=== PATIENT | male | born 1975 | race Caucasian/White ===

== ENCOUNTER 2016-08-23 04:40 | Emergency (ER) | payer OTHER ==
[2016-08-23] MEDS ORDERED: AMOX/CLAV 875 MG/125 MG TABLET PO STA (04:43)
[2016-08-23] MEDS ORDERED: IBUPROFEN 600 MG TABLET PO STA (04:43)
--- NOTE | 2016-08-23 04:48 | ED Physician Documentation ---
PD HPI ANIMAL BITE - Stated complaint Stated Complaint: LT ARM PUNCTURE WOUNDS - History obtained from History obtained from: Patient, Family - History of Present Illness Location of injury(ies): LUE, Multiple Details of the event: Dog, Well appearing, Immunized Timing - onset: How many hours ago (3) Timing - details: Abrupt onset Improved by: Rest, Immobilization Contributing factors: No: Immunocompromised, Asplenic Similar symptoms before: Has not had sx before Recently seen: Not recently seen - Additional information Additional information: Patient is a 41 year old male with no significant past medical history who is presenting to the emergency department after being bit by his dog. Their older dog attacked the puppy, and in trying to break up the fight the patient was bit/ scratched multiple times. the older dog is up to date with his shots, but the puppy has not been vaccinated. Review of Systems Constitutional: denies: Fever, Chills Eyes: denies: Photophobia Ears: denies: Ear pain, Drainage/discharge Nose: denies: Rhinorrhea / runny nose, Epistaxis Throat: denies: Dental pain / toothache, Oral lesions / sores GI: denies: Nausea, Vomiting Skin: reports: Lesions, Abrasion (s), Laceration (s) Musculoskeletal: reports: Extremity pain Neurologic: denies: Generalized weakness, Focal weakness Immunocompromised: denies: Immunocompromised PD PAST MEDICAL HISTORY - Present Medications Home Medications: Ambulatory Orders Medication Instructions Recorded Confirmed Amox/Clav 875/125 [Augmentin] 1 each PO Q12H #14 tablet 08/23/16 Fluoxetine HCl [Prozac] 40 mg PO DAILY 08/23/16 08/23/16 - Allergies Allergies/Adverse Reactions: Allergies Allergy/AdvReac Type Severity Reaction Status Date / Time No Known Drug Allergies Allergy Verified 08/23/16 04:50 PD ED PE NORMAL - Vitals Vital signs reviewed: Yes - General General: Alert and oriented X 3, No acute distress - HEENT HEENT: Atraumatic, PERRL, Pharynx benign - Neck Neck: Supple, no meningeal sign, No JVD - Cardiac Cardiac: RRR, No murmur - Respiratory Respiratory: No respiratory distress, Clear bilaterally - Abdomen Abdomen: Soft - Neuro Neuro: Alert and oriented X 3, supervisor bridges and buildings 2-12 intact, No motor deficit, No sensory deficit, Normal speech - Psych Psych: Normal mood, Normal affect PD ED PE EXPANDED - Derm Derm: Rash, Abrasion (s), Laceration(s) (multiple scratch mercado, few puncture wounds, no active bleeding) Results - Vitals Vitals: Vital Signs - 24 hr 08/23/16 04:45 Temperature 37.1 C Heart Rate 80 Respiratory 16 Rate Blood Pressure 116/84 H O2 Saturation 100 PD MEDICAL DECISION MAKING - ED course Complexity details: reviewed old records, re-evaluated patient, considered differential, d/w patient, d/w family ED course: Patient was seen and examined at bedside. patient;s wounds were cleaned and patient was treated with augmentin and ibuprofen. both dogs were known and could be observed. patient required no further work up at this time and was stable for discharge with outpatient follow up. Departure - Departure Disposition: 01 Home, Self Care Clinical Impression: Dog bite of arm Condition: Good Instructions: ED Bite Dog Follow-Up: ROSIO VARGAS [Primary Care Provider] - Within 1 week (wound check) Prescriptions: Amox/Clav 875/125 [Augmentin] 1 each PO Q12H #14 tablet Comments: Your symptoms today are being caused by a dog bite. You had your first dose of antibiotics today and will need to take them for the next 7 days. You should make sure you keep the wounds clean and dry. You should monitor for signs of infection and follow up with your pmd for those signs. You can take motrin or tylenol as needed for pain. You can also apply ice to the wounds as needed. You may return to the emergency department at any time for new, worsening or ucnontrollable symptoms.
[2016-08-23 04:50] VITALS: BP 116/84
[2016-08-23] MEDS ORDERED: AMOX/CLAV 875 MG/125 MG TABLET PO ONE (04:54)
[2016-08-23] MEDS ORDERED: IBUPROFEN 600 MG TABLET PO ONE (04:55)
== END 2016-08-23 05:14 | disposition home or self-care (01) ==
LOC: ED 04:40
DX: S41.132A Puncture wound without foreign body of left upper arm, initial encounter (principal); W54.0XXA Bitten by dog, initial encounter
CPT/HCPCS: 99283; A9270

== ENCOUNTER 2019-07-12 11:46 | Inpatient (IN) | payer OTHER ==
[2019-07-12 12:27] LABS: BASOPHILS # (AUTO) 0.1 10^3/uL (0.0-0.1); BASOPHILS % (AUTO) 0.7 %; EOSINOPHILS # (AUTO) 0.3 10^3/uL (0.0-0.7); EOSINOPHILS % (AUTO) 2.9 %; HGB - HEMOGLOBIN 14.8 g/dL (14.0-18.0); LYMPHOCYTES # (AUTO) 1.6 10^3/uL (1.5-3.5); LYMPHOCYTES % (AUTO) 18.1 %; MEAN CORPUSCULAR HEMOGLOBIN 30.9 pg (27.0-31.0); MEAN CORPUSCULAR HGB CONC 33.3 g/dL (32.0-36.0); MEAN CORPUSCULAR VOLUME 92.7 fL (80.0-94.0); MEAN PLATELET VOLUME 11.4 fL (7.4-11.4); MONOCYTES # (AUTO) 0.8 10^3/uL (0.0-1.0); MONOCYTES % (AUTO) 8.4 %; NEUTROPHILS # (AUTO) 6.2 10^3/uL (1.5-6.6); NEUTROPHILS % (AUTO) 69.5 %; PLT - PLATELET COUNT 172 10^3/uL (130-450); RED BLOOD COUNT 4.79 10^6/uL (4.70-6.10); RED CELL DISTRIBUTION WIDTH 12.2 % (12.0-15.0); WHITE BLOOD COUNT 8.9 x10^3/uL (4.8-10.8)
[2019-07-12] MEDS ORDERED: IOVERSOL 320 100 ML VIAL IVP ONE ×2 (12:31→13:07)
[2019-07-12 12:34] LABS: INR 1.3 (0.8-1.2)
[2019-07-12 12:41] LABS: ALBUMIN 3.5 g/dL (3.2-5.5); ALBUMIN/GLOBULIN RATIO 0.8 (1.0-2.2); BILIRUBIN,TOTAL 0.6 mg/dL (0.2-1.0); CALCIUM 8.4 mg/dL (8.5-10.3); CREATININE 0.9 mg/dL (0.6-1.2); PARTIAL THROMBOPLASTIN TIME 26.4 secs (24.9-33.3); TOTAL PROTEIN 7.7 g/dL (6.7-8.2)
--- NOTE | 2019-07-12 12:54 | ED Physician Documentation ---
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 He states he was in [place] at the time. States Benadryl mildly helps his shortness of breath. No fevers. No chills. No cough. Still feels short of breath with ambulation. Has also noted swelling to the bilateral lower extremity, left greater than right. Has also stated left calf pain. Worse with exertion. no chest pain Review of Systems Ten Systems: 10 systems reviewed and negative Constitutional: denies: Fever, Chills Ears: denies: Ear pain Nose: denies: Rhinorrhea / runny nose, Congestion Throat: denies: Sore throat GI: denies: Vomiting, Diarrhea Skin: denies: Rash Musculoskeletal: denies: Neck pain, Back pain Neurologic: denies: Headache PD PAST MEDICAL HISTORY - Past Medical History Past Medical History: Yes Psych: Depression - Past Surgical History Past Surgical History: Yes - Present Medications Home Medications: Ambulatory Orders Medication Instructions Recorded Confirmed Fluoxetine HCl [Prozac] 40 mg PO DAILY 08/23/16 08/23/16 - Allergies Allergies/Adverse Reactions: Allergies Allergy/AdvReac Type Severity Reaction Status Date / Time No Known Drug Allergies Allergy Verified 08/23/16 04:50 - Social History Does the pt smoke?: Yes Smoking Status: Current every day smoker Does the pt drink ETOH?: Yes Does the pt have substance abuse?: No - Family History Family history: reports: Non contributory - Immunizations Immunizations are current?: No - POLST Patient has POLST: No PD ED PE NORMAL - Vitals Vital signs reviewed: Yes - General General: Alert and oriented X 3, No acute distress, Well developed/nourished - HEENT HEENT: Moist mucous membranes - Neck Neck: Supple, no meningeal sign - Cardiac Cardiac: RRR, Strong equal pulses - Respiratory Respiratory: No respiratory distress, Clear bilaterally - Abdomen Abdomen: Soft, Non tender, Non distended - Derm Derm: Warm and dry - Extremities Extremities: Other (Tender to palpation left posterior calf with mild swelling.) - Neuro Neuro: Alert and oriented X 3, No motor deficit, No sensory deficit - Psych Psych: Normal mood, Normal affect Results - Vitals Vitals: Vital Signs - 24 hr 07/12/19 07/12/19 07/12/19 11:49 12:24 12:30 Temperature 36.5 C Heart Rate 126 H 112 H 113 H Respiratory 20 25 H 16 Rate Blood Pressure 132/80 H 132/74 H 131/97 H O2 Saturation 96 95 93 07/12/19 13:00 Temperature Heart Rate 109 H Respiratory 16 Rate Blood Pressure 130/74 O2 Saturation 93 Oxygen O2 Source Room air - EKG (time done) 1200 Rate: Rate (enter#) (117) Rhythm: Sinus tachycardia [place]: Normal Intervals: Normal MO QRS: LVH Ischemia: Normal ST segments - Labs Labs: Laboratory Tests 07/12/19 07/12/19 07/12/19 12:17 12:17 12:17 WBC 8.9 RBC 4.79 Hgb 14.8 Hct 44.4 MCV 92.7 MCH 30.9 MCHC 33.3 RDW 12.2 Plt Count 172 MPV 11.4 Neut # (Auto) 6.2 Lymph # (Auto) 1.6 Sanders # (Auto) 0.8 Eos # (Auto) 0.3 Baso # (Auto) 0.1 Absolute Nucleated RBC 0.00 Nucleated RBC % 0.0 PT INR APTT Sodium 136 Potassium 4.1 Chloride 105 Carbon Dioxide 24 Anion Gap 7.0 BUN 8 Creatinine 0.9 Estimated GFR (MDRD) 91 Glucose 116 H Calcium 8.4 L Total Bilirubin 0.6 AST 20 ALT 21 Alkaline Phosphatase 98 Troponin I High Sens 31.7 H* B-Natriuretic Peptide Total Protein 7.7 Albumin 3.5 Globulin 4.2 Albumin/Globulin Ratio 0.8 L Lipase 23 07/12/19 07/12/19 12:17 12:17 WBC RBC Hgb Hct MCV MCH MCHC RDW Plt Count MPV Neut # (Auto) Lymph # (Auto) Sanders # (Auto) Eos # (Auto) Baso # (Auto) Absolute Nucleated RBC Nucleated RBC % PT 15.0 H INR 1.3 H APTT 26.4 Sodium Potassium Chloride Carbon Dioxide Anion Gap BUN Creatinine Estimated GFR (MDRD) Glucose Calcium Total Bilirubin AST ALT Alkaline Phosphatase Troponin I High Sens B-Natriuretic Peptide 353 H Total Protein Albumin Globulin Albumin/Globulin Ratio Lipase - Rads (name of study) CT pulmonary angiogram Radiology: Prelim report reviewed, EMP read contemporaneously, See rad report (1. Extensive bilateral pulmonary emboli with CT findings consistent with right heart strain. 2. Right lower lobe and left lower lobe focal parenchymal infarcts. Trace left pleural effusion. 3. Coronary artery atherosclerosis. 4. Cholelithiasis. ) PD MEDICAL DECISION MAKING - ED course Complexity details: reviewed results, re-evaluated patient, considered differential, d/w patient ED course: Patient with significant bilateral pulmonary emboli. Likely right heart strain as well. Started on a heparin drip and will admit for further care. BNP is elevated as well as high-sensitivity troponin mildly elevated. Discussed the case with the hospitalist, Dr. Ojeda who asks that I consult the PE response team at [facility] in [place]. D/w Dr. Alfaro at [facility] and recommends heparin gtt, cardiac echo and duplex US. If extensive clot in LE, may consider a filter. O/w would treat with heparin. recontacted Dr. Ojeda who accepts. This document was made in part using voice recognition software. While efforts are made to proofread this document, sound alike and grammatical errors may occur. Departure - Departure Disposition: 66 [facility] DC/Xfer Clinical Impression: Pulmonary embolism Qualifiers: Pulmonary embolism type: unspecified Chronicity: acute Acute cor pulmonale presence: with acute cor pulmonale Qualified Code(s): I26.09 - Other pulmonary embolism with acute cor pulmonale Condition: Stable Discharge Date/Time: 07/12/19 15:01
[2019-07-12] MEDS ORDERED: HEPARIN 5,000 UNIT/ML VIAL IVP STA (13:07)
[2019-07-12] MEDS: HEPARIN 25000UNITS/500ML (D5W) 25,000 UNIT/500 ML BAG IV STA (13:23)
[2019-07-12] MEDS ORDERED: ACETAMINOPHEN 325 MG TABLET PO PRN (13:41)
[2019-07-12] MEDS ORDERED: SODIUM CHLORIDE FLUSH 0.9% 10 ML SYRINGE IVP PRN (13:41)
[2019-07-12] MEDS ORDERED: ONDANSETRON ODT 4 MG TABLET TL PRN (13:41)
--- NOTE | 2019-07-12 14:34 | CT Report ---
Reason: dypsnea, possible PE Procedure Date: 07/12/2019 Accession Number: [id number] / [id number] Procedure: CT - ANGIO CHEST W/WO CPT Code: Final Report FULL RESULT: EXAM: CT ANGIOGRAM CHEST EXAM DATE: 07/12/2019 01:03 PM. CLINICAL HISTORY: Dyspnea, possible pulmonary embolus. Left calf pain. Chest tightness. Shortness of breath. Dyspnea. COMPARISON: 03/26/2009. TECHNIQUE: Routine helical imaging was performed through the chest in the pulmonary arterial phase. IV Contrast: 80 cc of Optiray 320. Reconstructions: Coronal 3-D MIP reconstructions. Sagittal and coronal. In accordance with CT protocol optimization, one or more of the following dose reduction techniques were utilized for this exam: automated exposure control, adjustment of mA and/or KV based on patient size, or use of iterative reconstructive technique. FINDINGS: Pulmonary Arteries: Diagnostic quality: Adequate through the segmental arteries. Extensive bilateral pulmonary emboli are seen extending from the distal aspect of the mid distal right main pulmonary artery into the right upper lobe, right middle lobe and right lower lobe pulmonary arteries and the proximal right lower lobe throughout the right upper lobe and right middle lobe are largely occlusive. Additionally, throughout the left upper lobe and left lower lobe extensive pulmonary emboli numerous of which are occlusive. RV/LV ratio greater than 1 and there is flattening and bowing of the interventricular septum and some reflux of contrast. Lungs/Pleura: Peripheral focal wedge-shaped developing parenchymal infarct seen in the left lower lobe. Trace left pleural effusion. No endobronchial obstruction. No pneumothorax. No vascular congestion. Peripheral opacity right lateral lower lobe also may represent a small developing infarct. Mediastinum: Heart size upper normal. Coronary artery calcified plaque. Trace pericardial effusion. No mediastinal hematoma. Visualized thyroid gland is unremarkable. No enlarged mediastinal hilar lymph nodes. Thoracic Aorta: Nondiagnostic enhancement. No aneurysm. Aberrant right subclavian artery, normal variant. Upper Abdomen: Noncalcified gallstones. Otherwise, upper abdomen is unremarkable. Other: Mild degenerative changes of the thoracic spine. No acute osseous abnormalities. IMPRESSION: 1. Extensive bilateral pulmonary emboli with CT findings consistent with right heart strain. 2. Right lower lobe and left lower lobe focal parenchymal infarcts. Trace left pleural effusion. 3. Coronary artery atherosclerosis. 4. Cholelithiasis. RADIA The call report notification system was initiated by Dr. Danish Hansen at 02:10 PM on 07/12/2019. The above call report findings were discussed with Tyler Valderrama by Dr. Danish Hansen at 02:15 PM on 07/12/2019.
[2019-07-12] MEDS: HYDROcod/ACETAM 5/325 MG TABLET PO PRN ×2 (16:41→20:19)
--- NOTE | 2019-07-12 16:50 | Ultrasound Report ---
Reason: LLE swelling, pain Procedure Date: 07/12/2019 Accession Number: [id number] / [id number] Procedure: US - Duplex Ext Veins Left CPT Code: Final Report FULL RESULT: EXAM: LEFT LOWER EXTREMITY VENOUS ULTRASOUND EXAM DATE: 07/12/2019 03:22 PM. CLINICAL HISTORY: LLE swelling, pain. COMPARISON: None. TECHNIQUE: Real-time sonographic vascular imaging was performed by the credit portfolio manager through the lower extremity utilizing both color-flow and Doppler spectral analysis. Multiple client services representative static images were saved for review. FINDINGS: Common Femoral Vein (CFV): Normal. CFV-GSV Junction: Normal. Profunda Femoral Vein (PFV): Normal. Femoral Vein (FV) Prox: Normal. Femoral Vein (FV) Mid: Normal. Femoral Vein (FV) Dist: Normal. Popliteal Vein: Nonocclusive thrombus Posterior Tibial Veins: Possible nonocclusive thrombus Peroneal Veins: Possible nonocclusive thrombus Other: None. IMPRESSION: Left-sided deep venous thrombosis in popliteal vein and possibly in posterior tibial and peroneal veins. RADIA The call report notification system was initiated by Dr. Chikis Ortiz at 04:44 PM on 07/12/2019. The above call report findings were discussed with Tyler Valderrama by Dr. Chikis Ortiz at 04:48 PM on 07/12/2019.
--- NOTE | 2019-07-12 16:55 | HISTORY & PHYSICAL EXAMINATION ---
Chief Complaint - Chief Complaint Chief Complaint: Shortness, leg cramps History of Present Illness - Admitted From Admitted From:: ED - History Obtained From Records Reviewed: ED History obtained from: Pt, ED physician Exam Limitations: None - History of Present Illness HPI Comment/Other: Patient is a 43-year-old male who denies any significant past medical history with the exception of being on Prozac for about 1 year 1 year ago. He is 8 transport truck driver, who drives long haul, who complains of shortness of breath, dyspne a on exertion progressively worsening for the last 1 week. This has also been associated with bilateral leg cramping, initially starting with the right calf, then migrating to the left with resolution of the right. He also noticed this morning that he developed a discoloration to the dorsal aspect of his left foot, consistent with a bruise. This concerned him enough to go to the emergency room for further evaluation. In the ER, patient was evaluated with a CT angiogram of the chest, found to have bilateral pulmonary emboli. His pulse oximetry was Normal on room air,But the patient was tachypneic and short of breath when speaking in long sentences.At the time of admission, ultrasound of the lower extremities was pending. ED physician reached out to [facility] pulmonary embolus consult line, who recommended admission on heparin GTT, with follow-up on the ultrasound images recommending a possible outpatient filter if there is an extensive clots in the lower extremities. Otherwise, they did not recommend any intervention at this time given that the clots have been there for about 1 week. History - Past Medical History Cardiovascular: reports: None Psych: reports: Depression MRSA Hx?: No - Family & Social History Family History: Other family: Cancer (Grandfather from presumed lung cancer) Living arrangement: At home Living Situation: With spouse/s.o. - Substance History Use: Uses substance without health or social issues: NONE Abuse: Recurrent use of substance despite neg consequences: Alcohol Dependence: Experiences withdrawal or developed tolerances: NONE Tobacco Details: Cigarettes (Very heavy smoker for years, smokes up to 2 packs/day) - POLST Patient has POLST: No POLST Status: Full Code Meds/Allgy - Home Medications Home Medications: Ambulatory Orders Medication Instructions Recorded Confirmed Fluoxetine HCl [Prozac] 40 mg PO DAILY 08/23/16 08/23/16 - Allergies Allergies/Adverse Reactions: Allergies Allergy/AdvReac Type Severity Reaction Status Date / Time No Known Drug Allergies Allergy Verified 08/23/16 04:50 Review of Systems - Cardiovascular Cariovascular: denies: Chest pain - Respiratory Respiratory: reports: SOB with exertion. denies: Cough, Wheezing, SOB at rest - Psychiatric Psychiatric: reports: Anxiety - All Other Systems All Other Systems: reports: Reviewed and negative Prior Level of Functionality: Fully independent, working as a transport truck driver. Exam - Vital Signs Reviewed Vital Signs: Yes Vital Signs: Vital Signs x48h Temp Pulse Pulse Resp BP BP Pulse Ox 07/12/19 16:30 37.2 C 97 18 97 07/12/19 16:00 37.2 C 107 H 20 121/81 H 96 07/12/19 15:07 103 H 20 144/89 H 96 07/12/19 13:00 109 H 16 130/74 93 07/12/19 12:30 113 H 16 131/97 H 93 07/12/19 12:24 112 H 25 H 132/74 H 95 07/12/19 11:49 36.5 C 126 H 20 132/80 H 96 - Physical Exam General Appearance: positive: No acute distress Eyes Bilateral: positive: Normal inspection ENT: positive: ENT inspection nml Neck: positive: Nml inspection Cardiovascular: positive: Regular rate & rhythm, No murmur, No gallop Abdomen: positive: Non-tender, No organomegaly, Nml bowel sounds Skin: positive: Color nml Extremities: positive: Other (Significant left calf tenderness, with negative Homans, no palpable cord) Conclusion/Plan - Problem List (1) Pulmonary embolism Conclusion/Plan: Bilateral multiple pulmonary emboli seen on chest CT.Fortunately, patient is not hypoxic and appears relatively clinically stable. He is been started on heparin drip in the ER and this will be continued until we can transition him to oral anticoagulation likely tomorrow. Qualifiers: Pulmonary embolism type: unspecified Chronicity: acute Acute cor pulmonale presence: with acute cor pulmonale Qualified Code(s): I26.09 - Other pulmonary embolism with acute cor pulmonale (2) Left leg DVT Conclusion/Plan: Ultrasound positive for left leg popliteal DVT. Fortunately, this is not extensive enough to require an IVC filter, so plan is as above anticoagulation with heparin GTT overnight, transition oral in the morning. (3) Tobacco abuse Conclusion/Plan: Patient was counseled extensively for more than 15 minutes with regards to tobacco abuse.He declined nicotine patch as for now he has not had any cravings, but I reminded him we can offer this during his hospital stay should he request it. (4) Alcohol abuse Conclusion/Plan: Patient denies any history of withdrawal, has on multiple occasions had to quit because of his job, frequently going from 12 beers in 1 day to 0 alcohol for the next 2 to 3 days without withdrawal. In any case, will continue to monitor for withdrawal. - Lab Results Lab results reviewed: Yes Sree Bones: 07/12/19 12:17 07/12/19 12:17 - Diagnostic Imaging Results Diagnostic Imaging Results: positive: Final report reviewed - EKG Results EKG Interpreted Independently: Yes Core Measures - Anticipated LOS I expect patient to be DC'd or transferred within 96 hours.: Yes - DVT/VTE - Prophylaxis VTE/DVT Device ordered at admit?: No VTE/DVT Prophylaxis med ordered at admit?: Yes
[2019-07-12] MEDS: SODIUM CHLORIDE FLUSH 0.9% 10 ML SYRINGE IVP SCH (17:12)
[2019-07-12] MEDS: FAMOTIDINE 20 MG TABLET PO SCH (20:19)
[2019-07-13] MEDS: HYDROcod/ACETAM 5/325 MG TABLET PO PRN ×2 (00:21→08:09)
[2019-07-13] MEDS: SODIUM CHLORIDE FLUSH 0.9% 10 ML SYRINGE IVP SCH (01:04)
[2019-07-13] MEDS: HEPARIN 25000UNITS/500ML (D5W) 25,000 UNIT/500 ML BAG IV STA (03:21)
[2019-07-13] MEDS: FAMOTIDINE 20 MG TABLET PO SCH (08:09)
--- NOTE | 2019-07-13 10:42 | PHARMACY PROGRESS NOTE ---
- Best Possible Medication History Admit Date and Time: 07/12/19 1341 Processed by: Pharmacy Medication History completed: Yes Secondary Source(s): Pharmacy records As the person ultimately responsible for medication therapy, providers are able to order a medication from an existing home medication list in [facility] via the "Reconcile Routine" prior to Confirmation of that medication by it support technician. Such practice is discouraged except when the physician, in their clinical judgment, deems that a medical need exists for a medication without regard to previous use.
--- NOTE | 2019-07-13 15:34 | PROVIDER PROGRESS NOTE ---
Subjective - Prog Note Date Prog Note Date: 07/13/19 Prog Note Time: 15:33 - Subjective Pt reports feeling: No change (Patient's breathing is improved however he continues to have pain in the left calf which is the same or slightly worse than yesterday.) Objective - Vital Signs/Intake & Output Vital Signs: Vital Signs x48h Temp Pulse Resp BP Pulse Ox 07/13/19 12:00 36.4 C L 101 H 20 119/82 H 91 L 07/13/19 08:00 36.7 C 101 H 18 120/79 90 L Intake & Output: Intake & Output 07/10/19 07/11/19 07/12/19 07/13/19 23:59 23:59 23:59 23:59 Intake Total 460.237 606.37 Output Total 350 725 Balance 110.237 -118.63 - Lab Results Fish Bones: 07/12/19 12:17 07/12/19 12:17 Other Labs: Lab Results x24hrs 07/13/19 07/13/19 07/12/19 Range/Units 08:32 02:45 20:00 Anti-Xa Level 0.3 0.3 0.2 ( - 0.7) U/mL Troponin I High Sens (2.3-19.7) ng/L 07/12/19 Range/Units 18:27 Anti-Xa Level ( - 0.7) U/mL Troponin I High Sens 97.2 H* (2.3-19.7) ng/L Assessment/Plan - Problem List (1) Pulmonary embolism Qualifiers: Pulmonary embolism type: unspecified Chronicity: acute Acute cor pulmonale presence: with acute cor pulmonale Qualified Code(s): I26.09 - Other pulmonary embolism with acute cor pulmonale
[2019-07-13] MEDS: HEPARIN 25000UNITS/500ML (D5W) 25,000 UNIT/500 ML BAG IV SCH (18:54)
[2019-07-13] MEDS: APIXABAN 5 MG TABLET PO SCH (21:07)
[2019-07-14] MEDS: HYDROcod/ACETAM 5/325 MG TABLET PO PRN ×3 (00:10→17:37)
[2019-07-14] MEDS: SODIUM CHLORIDE FLUSH 0.9% 10 ML SYRINGE IVP SCH ×5 (00:12→23:22)
[2019-07-14] MEDS: HEPARIN 25000UNITS/500ML (D5W) 25,000 UNIT/500 ML BAG IV SCH (01:42)
[2019-07-14 07:30] LABS: MEAN CORPUSCULAR HEMOGLOBIN 31.3 pg (27.0-31.0); MEAN CORPUSCULAR HGB CONC 33.7 g/dL (32.0-36.0); MEAN CORPUSCULAR VOLUME 93.1 fL (80.0-94.0); MEAN PLATELET VOLUME 10.9 fL (7.4-11.4); RED BLOOD COUNT 4.47 10^6/uL (4.70-6.10); RED CELL DISTRIBUTION WIDTH 12.3 % (12.0-15.0)
[2019-07-14 07:36] LABS: CALCIUM 8.3 mg/dL (8.5-10.3); CREATININE 0.8 mg/dL (0.6-1.2)
[2019-07-14] MEDS: FAMOTIDINE 20 MG TABLET PO SCH ×3 (11:57→20:59)
[2019-07-14] MEDS: APIXABAN 5 MG TABLET PO SCH ×2 (13:04→20:59)
--- NOTE | 2019-07-14 15:00 | PROVIDER PROGRESS NOTE ---
Subjective - Prog Note Date Prog Note Date: 07/14/19 Prog Note Time: 14:57 - Subjective Pt reports feeling: No change (Continues to feel short of breath with short distances in the room, continues to have significant pain in the left calf) Current Medications - Current Medications Current Medications: Active Medications Acetaminophen (Tylenol) 650 mg PO Q4HR PRN PRN Reason: Pain 1 to 4 Hydrocodone Bitart/Acetaminophen ([place] 5/325) 1 tab PO Q4HR PRN PRN Reason: Pain 5 to 7 Last Admin: 07/14/19 11:55 Dose: 1 tab Apixaban (Eliquis) 10 mg PO BID [facility] Last Admin: 07/14/19 13:04 Dose: 10 mg Famotidine (Pepcid) 20 mg PO BID [facility] Last Admin: 07/14/19 13:04 Dose: 20 mg Heparin Sodium (Porcine) () 2,550 unit 25 unit/kg (2550 unit) IVP Q6H PRN PRN Reason: ANTI-XA < 0.2 Ondansetron HCl (Zofran Odt) 4 mg TL Q6HR PRN PRN Reason: Nausea / Vomiting Sodium Chloride (Normal Saline Flush 0.9%) 10 ml IVP PRN PRN PRN Reason: NEEDED PER PROVIDER ORDERS Sodium Chloride (Normal Saline Flush 0.9%) 10 ml IVP 0100,0900,1700 [facility] Last Admin: 07/14/19 12:58 Dose: 10 ml Objective - Vital Signs/Intake & Output Vital Signs: Vital Signs x48h Temp Pulse Resp BP Pulse Ox 07/14/19 11:33 36.9 C 93 16 114/73 94 07/14/19 08:13 98 20 106/70 92 07/14/19 07:53 36.8 C Intake & Output: Intake & Output 07/11/19 07/12/19 07/13/19 07/14/19 23:59 23:59 23:59 23:59 Intake Total 698.557 9213.244 720 Output Total 350 1125 325 Balance 110.237 498.244 395 - Objective General Appearance: positive: No acute distress Eyes Bilateral: positive: Normal inspection Neck: positive: Nml inspection Respiratory: positive: Chest non-tender, No respiratory distress, Breath sounds nml Cardiovascular: positive: Regular rate & rhythm, No murmur, No gallop Abdomen: positive: Non-tender, No organomegaly, Nml bowel sounds Skin: positive: Color nml. negative: Pallor Extremities: positive: No pedal edema, Calf tenderness (Left calf tenderness). negative: Violet's sign/cords Neurologic/Psychiatric: positive: Oriented x3, CN's nml (2-12) - Lab Results Fish Bones: 07/14/19 07:18 07/14/19 07:18 Other Labs: Lab Results x24hrs 07/14/19 07/14/19 Range/Units 07:18 07:18 WBC 9.0 (4.8-10.8) x10^3/uL RBC 4.47 L (4.70-6.10) 10^6/uL Hgb 14.0 (14.0-18.0) g/dL Hct 41.6 L (42.0-52.0) % MCV 93.1 (80.0-94.0) fL MCH 31.3 H (27.0-31.0) pg MCHC 33.7 (32.0-36.0) g/dL RDW 12.3 (12.0-15.0) % Plt Count 162 (130-450) 10^3/uL MPV 10.9 (7.4-11.4) fL Sodium 138 (135-145) mmol/L Potassium 3.9 (3.5-5.0) mmol/L Chloride 101 (101-111) mmol/L Carbon Dioxide 26 (21-32) mmol/L Anion Gap 11.0 (6-13) BUN 13 (6-20) mg/dL Creatinine 0.8 (0.6-1.2) mg/dL Estimated GFR (MDRD) 105 (>89) Glucose 104 H (70-100) mg/dL Calcium 8.3 L (8.5-10.3) mg/dL - Diagnostic Imaging Diagnostic Imaging Results: positive: Final report reviewed, Read independently Assessment/Plan - Problem List (1) Pulmonary embolism Impression: Continues to be hypoxic, down to 1 L, but still dyspneic on exertion with short distances. He is making overall progress, so I hesitate to discharge him home on home oxygen given the extent of his pulmonary emboli. Would anticipate probable discharge tomorrow if able to wean down to room air.Continue Eliquis twice daily. Qualifiers: Pulmonary embolism type: unspecified Chronicity: acute Acute cor pulmonale presence: with acute cor pulmonale Qualified Code(s): I26.09 - Other pulmonary embolism with acute cor pulmonale (2) Left leg DVT Impression: Pain is stable, somewhat disproportionate for what I would expect of a DVT espec ially after appropriate anticoagulation. There are no outward physical appearances suggestive of superficial thrombosis, certainly no clinical signs of septic embolus, but if not making any improvement tomorrow could consider CT scan of the lower extremity to rule out hematoma, abscess, etc. (3) Tobacco abuse Impression: Counseled extensively to quit (4) Alcohol abuse Impression: Counseled extensively to quit, no signs of withdrawal at this time, continue to monitor
[2019-07-15] MEDS: SODIUM CHLORIDE FLUSH 0.9% 10 ML SYRINGE IVP SCH ×2 (02:19→08:32)
[2019-07-15 07:46] VITALS: BP 109/68
[2019-07-15] MEDS: HEPARIN 25000UNITS/500ML (D5W) 25,000 UNIT/500 ML BAG IV SCH (08:31)
[2019-07-15] MEDS: APIXABAN 5 MG TABLET PO SCH (08:35)
[2019-07-15] MEDS: FAMOTIDINE 20 MG TABLET PO SCH (08:35)
--- NOTE | 2019-07-15 09:22 | Discharge Plan ---
Discharge Plan Problem Reviewed?: Yes Disposition: Home, Self Care Condition: Good Prescriptions: Apixaban [Eliquis] 10 mg PO BID 90 Days #194 tablet Apixaban [Eliquis] 5 mg PO BID #1 tab.ds.pk Diet: Cardiac Activity Restrictions: No Restrictions Shower Restrictions: No Driving Restrictions: No (Ok to drive but recommend frequent stops, every 2 hours to walk) Weight Bearing: Full Weight Instruction Topics: Apixaban oral tablets, Embolism Pulmonary, DVT Dc, Embolism Pulmonary Dc, COVID-19 [facility], COVID-19 [facility] Department Statement Health Concerns: Please stop smoking and drinking. Plan of Treatment: Cont blood thinner (Eliquis) for 90 days. Follow up with your PCP, and let him know about the echocardiogram we did so that he can advise you on the results. Repeat an Ultrasound of your left leg in 90 days to ensure your blood clot has resolved. Additional Instructions or Follow Up instructions: PCP No Smoking: If you smoke, Please STOP! Call for help.
--- NOTE | 2019-07-15 09:33 | DISCHARGE SUMMARY ---
Discharge Summary Admit Date: 07/12/19 Discharge Date: 07/15/19 Discharging Provider: Abelardo Ojeda MD Primary Care Provider: [facility] Code Status: Attempt Resuscitation Condition at Discharge: Good Discharge Disposition: 01 Home, Self Care - DIAGNOSES Admission Diagnoses: Pulmonary Emboli, Bilateral L Leg DVT Right Heart Strain Discharge Diagnoses with Status of Each Condition: Pulmonary Emboli, Bilateral - Improved L Leg DVT - Improved Right Heart Strain - Stable - HPI History of Present Illness: Patient is a 43-year-old male who denies any significant past medical history with the exception of being on Prozac for about 1 year 1 year ago. 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 This has also been associated with bilateral leg cramping, initially starting with the right calf, then migrating to the left with resolution of the right. He also noticed this morning that he developed a discoloration to the dorsal aspect of his left foot, consistent with a bruise. This concerned him enough to go to the emergency room for further evaluation. In the ER, patient was evaluated with a CT angiogram of the chest, found to have bilateral pulmonary emboli. His pulse oximetry was Normal on room air,But the patient was tachypneic and short of breath when speaking in long sentences.At the time of admission, ultrasound of the lower extremities was pending. ED physician reached out to [facility] pulmonary embolus consult line, who recommended admission on heparin GTT, with follow-up on the ultrasound images recommending a possible outpatient filter if there is an extensive clots in the lower extremities. Otherwise, they did not recommend any intervention at this time given that the clots have been there for about 1 week. - HOSPITAL COURSE Hospital Course: Patient was admitted for bilateral pulmonary emboli, with large wedge deformity of the right pulmonary artery, as well as left lower extremity DVT of the popliteal vein. He was started on a heparin drip, and then transitioned to oral anticoagulation with Eliquis. He was initially saturating well on room air, but overnight after admission, developed hypoxia requiring 2 L of nasal cannula oxygen supplementation. His oxygen saturations improved through the following 24 hours, and his left leg pain improved to the point that he was able to ambulate. He was then sent prescriptions for Eliquis, and an echocardiogram was performed to evaluate his right heart strain, however patient's did not want to wait for results and he was deemed to be medically safe for discharge with recommendations to follow-up with his PCP for anticoagulation to be completed for at least 3 months with a repeat ultrasound of the lower extremity in 3 months. And also to follow-up the results of the right heart strain. He was also advised strongly to stop smoking, as well as drinking alcohol. In addition, he may warrant a stress test in the near future given coronary artery calcifications seen on the CT angiogram. - ALLERGIES Allergies/Adverse Reactions: Allergies Allergy/AdvReac Type Severity Reaction Status Date / Time No Known Drug Allergies Allergy Verified 08/23/16 04:50 - MEDICATIONS Home Medications: Ambulatory Orders Medication Instructions Recorded Confirmed Apixaban [Eliquis] 5 mg PO BID #1 tab.ds.pk 07/13/19 Acetaminophen [Tylenol] 650 mg PO Q4HR PRN tablet 07/15/19 Apixaban [Eliquis] 10 mg PO BID tablet 07/15/19 Apixaban [Eliquis] 10 mg PO BID 90 Days #194 tablet 07/15/19 - PHYSICAL EXAM AT DISCHARGE General Appearance: positive: No acute distress Eyes Bilateral: positive: Normal inspection ENT: positive: ENT inspection nml Neck: positive: Nml inspection, Thyroid nml, No JVD Respiratory: positive: No respiratory distress Cardiovascular: positive: Regular rate & rhythm, No murmur, No gallop Peripheral Pulses: positive: 2+ Abdomen: positive: Non-tender, No organomegaly, Nml bowel sounds Skin: positive: Color nml Extremities: positive: Full ROM, Nml appearance, No pedal edema Neurologic/Psychiatric: positive: Oriented x3, CN's nml (2-12) - LABS Result Diagrams: 07/14/19 07:18 07/14/19 07:18 - DIAGNOSTIC IMAGING Diagnostic Imaging Results: Final report reviewed, Read contemporaneously - FOLLOW UP Follow Up: PCP - TIME SPENT Time Spent in Discharge (Minutes): 39
== END 2019-07-15 10:23 | disposition home or self-care (01) | DRG 175 ==
LOC: ED 11:46 → MS2 13:41
PROVIDERS: ADMIT Family Medicine Sports Medicine; ATTEND Family Medicine Sports Medicine
DX: I26.09 Other pulmonary embolism with acute cor pulmonale (principal); I82.432 Acute embolism and thrombosis of left popliteal vein; F32.9 Major depressive disorder, single episode, unspecified; F17.200 Nicotine dependence, unspecified, uncomplicated; I25.10 Atherosclerotic heart disease of native coronary artery without angina pectoris; F10.10 Alcohol abuse, uncomplicated
CPT/HCPCS: 36415; 71275; 80048; 80053; 83690; 83880; 84484; 85025; 85027; 85520; 85610; 85730; 93005; 93306; 93971; 96365; 96375; 99285; A9270; Q9967

== ENCOUNTER 2020-05-29 10:32 | Outpatient (CLI) | payer OTHER ==
--- NOTE | 2020-05-29 12:32 | XRAY Report ---
PROCEDURE: Shoulder 2 View LT INDICATIONS: Left shoulder pain TECHNIQUE: 2 views of the shoulder were acquired. COMPARISON: None. FINDINGS: Bones: No fractures or dislocations. No suspicious bony lesions. Visualized ribs appear intact. Soft tissues: No suspicious soft tissue calcifications. IMPRESSION: No acute finding. Reviewed by: Richar Walters MD on 05/29/2020 12:30 PM [facility] Approved by: Richar Walters MD on 05/29/2020 12:30 PM [facility] Station ID: [id number]
== END 2020-05-29 23:59 | disposition home or self-care (01) ==
LOC: DI.N 10:32
PROVIDERS: ATTEND Nurse Practitioner
DX: M25.512 Pain in left shoulder (principal)

== ENCOUNTER 2022-09-12 11:34 | Emergency (ER) | payer OTHER ==
[2022-09-12 11:44] VITALS: BP 125/84
--- NOTE | 2022-09-12 12:02 | ED Physician Documentation ---
History of Present Illness - Stated complaint Stated Complaint: HIGH BP - Chief complaint Chief Complaint: Cardiac - History obtained from History obtained from: Patient - History of Present Illness Timing: Today Pain level max: 0 Pain level now: 0 - Additonal information Additional information: Patient is a 47-year-old male who presents to the emergency department stating that he was checking his blood pressure at home today with an old blood pressure wrist cuff and it said 220/198. He states that he did not have any chest pain, no shortness of breath. No abdominal pain, no nausea or vomiting. He states he had just drank a cup of coffee and monster energy drink and smoked a few cigarettes. Patient states that he decided he should come in to get his blood pressure checked. He is currently fully asymptomatic. He states he did stop at [employer] and eat on the way here. Review of Systems Constitutional: denies: Fever, Chills Nose: denies: Rhinorrhea / runny nose Throat: denies: Sore throat Cardiac: denies: Chest pain / pressure, Palpitations Respiratory: denies: Cough GI: denies: Nausea, Vomiting Musculoskeletal: denies: Neck pain, Back pain Neurologic: denies: Focal weakness, Numbness, Headache PD PAST MEDICAL HISTORY - Past Medical History Past Medical History: Yes Cardiovascular: None Psych: Depression - Past Surgical History Past Surgical History: Yes - Present Medications Home Medications: Ambulatory Orders Medication Instructions Recorded Confirmed Apixaban [Eliquis] 5 mg PO BID #1 tab.ds.pk 07/13/19 Acetaminophen [Tylenol] 650 mg PO Q4HR PRN tablet 07/15/19 Apixaban [Eliquis] 10 mg PO BID tablet 07/15/19 Apixaban [Eliquis] 10 mg PO BID 90 Days #194 tablet 07/15/19 - Allergies Allergies/Adverse Reactions: Allergies Allergy/AdvReac Type Severity Reaction Status Date / Time No Known Drug Allergies Allergy Verified 09/12/22 11:43 - Social History Does the pt smoke?: Yes Smoking Status: Former smoker Does the pt drink ETOH?: Yes Does the pt have substance abuse?: No - Immunizations Immunizations are current?: No - POLST Patient has POLST: No POLST Status: Full Code PD ED PE NORMAL - Vitals Vital signs reviewed: Yes - General General: Alert and oriented X 3, No acute distress - HEENT HEENT: Moist mucous membranes - Neck Neck: Supple, no meningeal sign - Cardiac Cardiac: RRR - Respiratory Respiratory: No respiratory distress, Clear bilaterally - Abdomen Abdomen: Soft, Non tender, Non distended - Derm Derm: Warm and dry - Extremities Extremities: No edema, No calf tenderness / cord - Neuro Neuro: Alert and oriented X 3 Results - Vitals Vitals: Vital Signs - 24 hr 09/12/22 11:38 Temperature 36.4 C L Heart Rate 104 H Respiratory 18 Rate Blood Pressure 125/84 H O2 Saturation 96 Oxygen O2 Source Room air PD Medical Decision Making - ED course Complexity details: considered differential, d/w patient ED course: Patient with an isolated elevated blood pressure reading at home today. He does not have any elevated blood pressure on evaluation here. No indication for emergent testing. We did discuss lifestyle changes including decreased caffeine intake, decreased smoking or cessation of smoking and increased exercise. Recommend that he follow-up with his PCP for further care. No chest pain. No shortness of breath. No headache. No neurological symptoms. Patient counseled regarding signs and symptoms for which I believe and urgent re-evaluation would be necessary. Patient with good understanding of and agreement to plan and is comfortable going home at this time This document was made in part using voice recognition software. While efforts are made to proofread this document, sound alike and grammatical errors may occur. Departure - Departure Disposition: 01 Home, Self Care Clinical Impression: Blood pressure check Condition: Good Instructions: Pressure Blood Take Follow-Up: your,doctor in 1 week [Other] Comments: Please follow-up with your doctor for further care and recheck of your blood pressure. Your blood pressure today is 125/84. It is recommended that you try to stop smoking. Decrease your caffeine and energy drink intake. Please return if you worsen.
== END 2022-09-12 12:06 | disposition home or self-care (01) ==
LOC: ED 11:34
DX: R03.0 Elevated blood-pressure reading, without diagnosis of hypertension (principal); F17.210 Nicotine dependence, cigarettes, uncomplicated; Z79.01 Long term (current) use of anticoagulants
CPT/HCPCS: 99281; 99282